=== PATIENT | male | born 1995 | race American Indian/Alaskan Native ===

== ENCOUNTER 2017-05-06 20:07 | Emergency (ER) | payer MEDICAID, OTHER ==
[2017-05-06 20:27] VITALS: BP 135/81
== END 2017-05-06 20:25 | disposition left against medical advice (07) ==
LOC: ED 20:07
DX: S61.411A Laceration without foreign body of right hand, initial encounter (principal); W45.8XXA Other foreign body or object entering through skin, initial encounter; Y93.9 Activity, unspecified; Y99.9 Unspecified external cause status; Y92.9 Unspecified place or not applicable; Z53.21 Procedure and treatment not carried out due to patient leaving prior to being seen by health care provider

== ENCOUNTER 2017-05-07 11:06 | Emergency (ER) | payer OTHER ==
[2017-05-07 12:06] VITALS: BP 118/68
[2017-05-07] MEDS ORDERED: ULTRAM PO ONE (13:12)
[2017-05-07] MEDS ORDERED: MOTRIN PO ONE (13:12)
--- NOTE | 2017-05-07 14:35 | XRay Report ---
Right middle finger: Laceration/pain. Routine views demonstrate normal bone and soft tissue structures. The joints are aligned and preserved. No foreign body noted. An AP view to include the whole hand is unremarkable. Impression: Normal exam.
--- NOTE | 2017-05-07 14:36 | Emergency Department Report ---
ED Extremity Problem HPI - General Chief complaint: Wound/Laceration Stated complaint: RT HAND LACERATION Time Seen by Provider: 05/07/17 13:05 Source: patient Mode of arrival: Ambulatory Limitations: No Limitations - History of Present Illness Initial comments: PT states he cut his r hand with glass on 05-02-17. PT states he was at work and holding non tempered glass that broke. PT does not think he has residual fb. PT states his TD vaccine is UTD. PT states that he bleed a lot. PT was not seen at time of injury. PT states that the pain to the injured finger has been increasing. PT denies decrease in ROM, redness or drainage. PT reports R middle finger swelling MD Complaint: extremity swelling -: Gradual, days(s) (6) Location: right, upper extremity (hand ) History of Same: No Severity scale (0 -10): 10 Quality: sharp, constant Consistency: constant Improves with: nothing Worsens with: palpation, other (movement ) Associated Symptoms: denies other symptoms. denies: shortness of breath, fever - Related Data Previous Rx's Medication Instructions Recorded Last Taken Type Cephalexin [Keflex] 500 mg PO Q6HR #40 capsule 05/07/17 Unknown Rx Ibuprofen [Motrin] 600 mg PO Q8H PRN #20 tablet 05/07/17 Unknown Rx Allergies Allergy/AdvReac Type Severity Reaction Status Date / Time No Known Allergies Allergy Verified 05/07/17 12:01 ED Review of Systems ROS: Stated complaint: RT HAND LACERATION Other details as noted in HPI Comment: All other systems reviewed and negative Constitutional: denies: chills, fever Gastrointestinal: denies: nausea, vomiting Musculoskeletal: as per HPI Skin: as per HPI, other (laceration ). denies: change in color Neurological: numbness (to the R 3rd finger ) ED Past Medical Hx - Past Medical History Previous Medical History?: No - Surgical History Past Surgical History?: Yes Additional Surgical History: MOUTH - Social History Smoking Status: Current Every Day Smoker Substance Use Type: None - Medications Home Medications: Home Medications Medication Instructions Recorded Confirmed Last Taken Type Cephalexin [Keflex] 500 mg PO Q6HR #40 capsule 05/07/17 Unknown Rx Ibuprofen [Motrin] 600 mg PO Q8H PRN #20 tablet 05/07/17 Unknown Rx ED Physical Exam - General Limitations: No Limitations General appearance: alert, in no apparent distress - Head Head exam: Present: atraumatic, normocephalic, normal inspection - Eye Eye exam: Present: normal appearance. Absent: conjunctival injection - ENT ENT exam: Present: normal exam, normal external ear exam - Neck Neck exam: Present: normal inspection, full ROM - Respiratory Respiratory exam: Present: normal lung sounds bilaterally. Absent: respiratory distress - Cardiovascular Cardiovascular Exam: Present: regular rate, normal rhythm - Extremities Exam Extremities exam: Present: full ROM, tenderness, normal capillary refill. Absent: joint swelling - Expanded Upper Extremity Exam Right Elbow exam: Present: normal inspection, full ROM Forearm Wrist exam: Present: normal inspection, full ROM Hand Wrist exam: Present: full ROM, tenderness (to the proximal R middle finger ), swelling, laceration (to the ant R middle finger MCP joint, appears old, scabs noted ). Absent: ecchymosis, erythema, amputation, nail avulsion, subungual hematoma Vascular: Present: normal capillary refill, radial pulse. Absent: vascular compromise - Back Exam Back exam: Present: normal inspection, full ROM. Absent: tenderness, CVA tenderness (R), CVA tenderness (L) - Neurological Exam Neurological exam: Present: alert, oriented X3 - Psychiatric Psychiatric exam: Present: normal affect, normal mood - Skin Skin exam: Present: warm, dry, normal color. Absent: intact ED Course Vital Signs 05/07/17 12:01 Temperature 97.9 F Pulse Rate 60 Respiratory 18 Rate Blood Pressure 118/68 O2 Sat by Pulse 100 Oximetry - Reevaluation(s) Reevaluation #1: 05/07/17 14:46 I entered room to review pt's XR results and plan of care. PT turned away from me. PT states he just wants to go. PT states pain decreased sp medication. PT was given verbal instructions that he wound need to follow up with Ortho - Pulse Oximetry Interpretation Digit-Finger Initial Pulse Oximetry Readin Actions Taken: none ED Medical Decision Making - Radiology Data Radiology results: report reviewed XR finger - nap - Differential Diagnosis fb, cellulitis Critical Care Time: No Critical care attestation.: If time is entered above; I have spent that time in minutes in the direct care of this critically ill patient, excluding procedure time. ED Disposition Clinical Impression: Finger laceration Qualifiers: Encounter type: initial encounter Finger: middle finger Damage to nail status: without damage Foreign body presence: without foreign body Laterality: right Qualified Code(s): S61.212A - Laceration without foreign body of right middle finger without damage to nail, initial encounter Disposition: DC- TO HOME OR SELFCARE Is pt being admited?: No Does the pt Need Aspirin: No Condition: Stable Instructions: Finger Laceration (ED) Prescriptions: Cephalexin [Keflex] 500 mg PO Q6HR #40 capsule Ibuprofen [Motrin] 600 mg PO Q8H PRN #20 tablet PRN Reason: Pain Referrals: PRIMARY CAREMD [Primary Care Provider] - 3-5 Days CLAUDIA HOLT MD [Staff Physician] - 3-5 Days Forms: Work/School Release Form(ED) Time of Disposition: 14:47
== END 2017-05-07 14:54 | disposition home or self-care (01) ==
LOC: ED 11:06
DX: S61.212A Laceration without foreign body of right middle finger without damage to nail, initial encounter (principal); F17.200 Nicotine dependence, unspecified, uncomplicated; W25.XXXA Contact with sharp glass, initial encounter; Y93.89 Activity, other specified; Y99.0 Civilian activity done for income or pay; Y92.69 Other specified industrial and construction area as the place of occurrence of the external cause
CPT/HCPCS: 99283

== ENCOUNTER 2017-10-17 22:24 | Emergency (ER) | payer SELFPAY ==
[2017-10-17 23:17] VITALS: BP 131/64
== END 2017-10-18 04:06 | disposition left against medical advice (07) ==
LOC: ED 22:24
DX: M25.562 Pain in left knee (principal); Z53.21 Procedure and treatment not carried out due to patient leaving prior to being seen by health care provider

== ENCOUNTER 2018-04-13 11:07 | Emergency (ER) | payer OTHER ==
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
[2018-04-13] MEDS ORDERED: FLEXERIL PO ONE (12:35)
[2018-04-13] MEDS ORDERED: NORCO 5/325 PO ONE (12:35)
[2018-04-13] MEDS ORDERED: ZOFRAN ODT PO ONE (15:37)
[2018-04-13] MEDS ORDERED: DILAUDID IM ONE (15:37)
--- NOTE | 2018-04-13 16:20 | Cat Scan Report ---
FINAL REPORT EXAM: CT THORACIC SPINE WO CON HISTORY: [facility] Lspine xray shows poss t12 fx TECHNIQUE: Standard CT thoracic spine obtained at 1.25 millimeter axial increments. Coronal and sagittal reconstruction was also performed. PRIORS: None. FINDINGS: The vertebral bodies are intact. There is no evidence for acute fracture. There is no evidence for paravertebral soft tissue swelling. Alignment is maintained. IMPRESSION: Negative CT of the thoracic spine.
--- NOTE | 2018-04-13 16:25 | Cat Scan Report ---
FINAL REPORT EXAM: CT LUMBAR SPINE WO CON HISTORY: [facility] l spine xray shows L! endplate fx TECHNIQUE: Spiral high-resolution unenhanced 1.25 millimeter axial images were obtained through the lumbar spine. Sagittal and coronal plane are reconstructions were performed. PRIORS: None. FINDINGS: Counting reference: Lumbosacral junction. For the purposes of this report, L4-L5 is considered the level of the iliac crest. Bone marrow/ Fracture: There is evidence for an acute fracture involving the superior endplate of L1. The fracture line can be seen anteriorly at this level. Associated with anterior wedging of L1.. No evidence of a lytic or blastic process in the visualized spine. Alignment: Alignment is anatomic. T12-L1: Canal and foramina are patent. L1-L2: Canal and foramina are patent. L2-L3: Canal and foramina are patent. L3-L4: Canal and foramina are patent. L4-L5: Canal and foramina are patent. L5-S1: Canal and foramina are patent. Paraspinal soft tissues: The paraspinal soft tissues show no evidence for paravertebral hematoma or soft tissue mass. Sacrum and iliac wings: Visualized portions of the sacrum and iliac wings appear intact without fracture. The presacral soft tissues are normal in appearance. IMPRESSION: 1. Acute fracture of the superior endplate of L1.
[2018-04-13 17:52] VITALS: BP 110/68
--- NOTE | 2018-04-15 12:57 | XRay Report ---
LUMBOSACRAL SPINE, 3 VIEWS: History: Back pain Findings: Slightly limited lateral view but there appears to be small mild superior endplate deformities at L1 and possibly T12. Loss of height is approximately 10%. The remaining lumbar vertebra Are within normal limits. The posterior elements are intact. The sacrum is unremarkable. Impression: L1 superior endplate fracture. Questionable T12 superior endplate fracture.
== END 2018-04-13 18:55 | disposition admitted as inpatient to this hospital (09) ==
LOC: ED 11:07
DX: S32.010A Wedge compression fracture of first lumbar vertebra, initial encounter for closed fracture (principal); F17.200 Nicotine dependence, unspecified, uncomplicated; V89.2XXA Person injured in unspecified motor-vehicle accident, traffic, initial encounter; Y93.89 Activity, other specified; Y92.89 Other specified places as the place of occurrence of the external cause; Y99.8 Other external cause status
CPT/HCPCS: 72100; 72128; 72131; 96372; 99284; J1170; Q0162